=== PATIENT | male | born 2000 | race Two or more races ===

== ENCOUNTER 2022-04-02 20:03 | Emergency (ER) | payer MEDICAID ==
[~2022-04-02] VITALS: Ht 190.5 cm; Wt 103.0 kg
[2022-04-02 20:56] LABS: Basophils # (auto) 0.1 10 ^3/uL (0-0.2); Basophils % (auto) 0.8 % (0.0-2.0); Eosinophils # (auto) 0.1 10 ^3/uL (0-0.8); Eosinophils % (auto) 0.8 % (0.0-7.0); Hematocrit 43.8 % (41.0-53.0); Lymphocytes # (auto) 2.2 10 ^3/uL (0.4-5.4); Lymphocytes % (auto) 25.1 % (10.0-50.0); Mean Corpuscular Hemoglobin 31.1 pg (28.0-32.0); Mean Corpuscular Hgb Conc. 34.2 g/dL (32.0-36.0); Mean Corpuscular Volume 90.9 fL (80.0-100.0); Monocytes # (auto) 0.7 10 ^3/uL (0-1.3); Monocytes % (auto) 7.3 % (0.0-12.0); Neutrophils # (auto) 5.9 10 ^3/uL (1.6-8.6); Nucleated Red Blood Cells % 0.1 %; Red Blood Cells 4.82 10^6/uL (4.5-5.90); Red Cell Distribution Width 13.2 % (11.8-14.3); White Blood Cell 8.9 10^3/uL (4.4-10.8)
[2022-04-02 21:13] LABS: BUN/Creatinine Ratio 16.5; Calcium 9.1 mg/dL (8.5-10.1); INR 0.97 (0.9-1.15); Partial Thromboplastin Time 30.2 sec (24.6-33.4); Potassium 3.8 mmol/L (3.5-5.1)
[2022-04-02 21:16] LABS: Bilirubin, Total 0.4 mg/dL (0.2-1.0); Total Protein 7.8 g/dL (6.4-8.2)
[2022-04-03] MEDS ORDERED: AZIT250T9 PO (02:54)
[2022-04-03 02:55] VITALS: BP 121/74
== END 2022-04-03 02:58 | disposition home or self-care (01) ==
LOC: ER 20:05
DX: R07.89 Other chest pain (principal); J06.9 Acute upper respiratory infection, unspecified
CPT/HCPCS: 36415; 71045; 80053; 83880; 84484; 85025; 85610; 85730; 93005

== ENCOUNTER 2022-12-12 13:21 | Emergency (ER) | payer MEDICAID ==
[~2022-12-12] VITALS: Ht 190.5 cm; Wt 98.3 kg
[~2022-12-12 13:21] MED LIST: AZIT-43 PO
[2022-12-12 14:42] LABS: Basophils # (auto) 0 10 ^3/uL (0-0.2); Eosinophils # (auto) 0 10 ^3/uL (0-0.8); Eosinophils % (auto) 0.8 % (0.0-7.0); Hematocrit 45.3 % (41.0-53.0); Hemoglobin 15.8 g/dL (13.5-17.5); Lymphocytes # (auto) 1.5 10 ^3/uL (0.4-5.4); Lymphocytes % (auto) 32.9 % (10.0-50.0); Mean Corpuscular Hgb Conc. 34.8 g/dL (32.0-36.0); Mean Corpuscular Volume 88.8 fL (80.0-100.0); Monocytes # (auto) 0.4 10 ^3/uL (0-1.3); Monocytes % (auto) 9.5 % (0.0-12.0); Neutrophils # (auto) 2.5 10 ^3/uL (1.6-8.6); Neutrophils % (auto) 55.8 % (37.0-80.0); Nucleated Red Blood Cells % 0.2 %; White Blood Cell 4.4 10^3/uL (4.4-10.8)
[2022-12-12 14:47] LABS: Urine Bacteria FEW /hpf (None Seen); Urine Blood Negative /uL (Negative); Urine Clarity Clear (Clear); Urine Color Yellow (Yellow); Urine Protein, UAD Negative (Negative); Urine Specific Gravity 1.024 (1.001-1.035); Urine Urobilinogen Normal (Negative); Urine WBC <1 /hpf (0 - 3)
[2022-12-12 15:09] LABS: Alanine Aminotransferase 23 U/L (7-40); Albumin 4.9 g/dL (3.2-4.8); Alkaline Phosphatase 77 U/L (46-116); Anion Gap 8.8 (5-15); Aspartate Aminotransferase 8 U/L (13-40); BUN/Creatinine Ratio 11.8 (10.0-20.0); Bilirubin, Total 0.8 mg/dL (0.2-1.0); Blood Urea Nitrogen 10 mg/dL (9-23); Calcium 9.6 mg/dL (8.5-10.1); Carbon Dioxide 22.2 mmol/L (20-30); Chloride 106 mmol/L (98-107); Glucose 105 mg/dL (74-106); Potassium 4.1 mmol/L (3.5-5.1); Sodium 137 mmol/L (136-145); Total Protein 8.2 g/dL (5.7-8.2)
[2022-12-12 16:36] VITALS: BP 134/77; PULSE 67; RESP 17; TEMP 98.2; O2SAT 97
== END 2022-12-12 16:39 | disposition home or self-care (01) ==
LOC: ER 13:21
DX: R10.11 Right upper quadrant pain (principal); R11.2 Nausea with vomiting, unspecified; F12.10 Cannabis abuse, uncomplicated; E11.9 Type 2 diabetes mellitus without complications
CPT/HCPCS: 36415; 74176; 80053; 81001; 85025

== ENCOUNTER 2023-04-24 10:55 | Emergency (ER) | payer MEDICAID ==
[~2023-04-24] VITALS: Ht 188 cm; Wt 102.7 kg
[2023-04-24 11:54] LABS: Urine WBC None Seen /hpf (0 - 3)
[2023-04-24 12:04] LABS: Urine Bacteria NONE SEEN /hpf (None Seen); Urine Blood Negative /uL (Negative); Urine Clarity Clear (Clear); Urine Color Colorless (Yellow); Urine Protein, UAD Negative (Negative); Urine Specific Gravity 1.011 (1.001-1.035); Urine Urobilinogen Normal (Negative); Urine pH 6.5 (5.0-8.0)
[2023-04-24 12:06] LABS: Basophils # (auto) 0.1 10 ^3/uL (0-0.2); Basophils % (auto) 1.2 % (0.0-2.0); Eosinophils # (auto) 0 10 ^3/uL (0-0.8); Eosinophils % (auto) 0.9 % (0.0-7.0); Hematocrit 44.7 % (41.0-53.0); Hemoglobin 15.3 g/dL (13.5-17.5); Lymphocytes # (auto) 1.7 10 ^3/uL (0.4-5.4); Lymphocytes % (auto) 34.1 % (10.0-50.0); Mean Corpuscular Hemoglobin 31.2 pg (28.0-32.0); Mean Corpuscular Hgb Conc. 34.3 g/dL (32.0-36.0); Monocytes # (auto) 0.5 10 ^3/uL (0-1.3); Monocytes % (auto) 9.3 % (0.0-12.0); Neutrophils # (auto) 2.7 10 ^3/uL (1.6-8.6); Neutrophils % (auto) 54.5 % (37.0-80.0); Nucleated Red Blood Cells % 0.1 %; Red Blood Cells 4.91 10^6/uL (4.5-5.90)
[2023-04-24 12:36] LABS: Alanine Aminotransferase 19 U/L (7-40); Albumin 4.9 g/dL (3.2-4.8); Alkaline Phosphatase 82 U/L (46-116); Anion Gap 4 (5-15); Aspartate Aminotransferase 20 U/L (13-40); BUN/Creatinine Ratio 9.5 (10.0-20.0); Blood Urea Nitrogen 8 mg/dL (9-23); Calcium 9.6 mg/dL (8.5-10.1); Carbon Dioxide 26 mmol/L (20-30); Chloride 106 mmol/L (98-107); Glucose 93 mg/dL (74-106); Potassium 3.9 mmol/L (3.5-5.1); Sodium 136 mmol/L (136-145)
[2023-04-24 12:37] LABS: Bilirubin, Total 0.8 mg/dL (0.2-1.0); Total Protein 7.8 g/dL (5.7-8.2)
[2023-04-24] MEDS ORDERED: SODIUM CHLORIDE 0.9% 1,000 ML IV ONE (13:15)
[2023-04-24 14:24] VITALS: BP 121/82; PULSE 82; RESP 16; TEMP 98; O2SAT 99
[2023-04-24 16:40] LABS: Basophils # (auto) 0 10 ^3/uL (0-0.2); Eosinophils # (auto) 0 10 ^3/uL (0-0.8); Eosinophils % (auto) 0.3 % (0.0-7.0); Hematocrit 43.6 % (41.0-53.0); Lymphocytes # (auto) 1.7 10 ^3/uL (0.4-5.4); Lymphocytes % (auto) 32.9 % (10.0-50.0); Mean Corpuscular Hemoglobin 31.3 pg (28.0-32.0); Mean Corpuscular Hgb Conc. 34.4 g/dL (32.0-36.0); Monocytes # (auto) 0.5 10 ^3/uL (0-1.3); Monocytes % (auto) 8.9 % (0.0-12.0); Neutrophils # (auto) 2.9 10 ^3/uL (1.6-8.6); Neutrophils % (auto) 56.9 % (37.0-80.0); Nucleated Red Blood Cells % 0.1 %; Red Blood Cells 4.79 10^6/uL (4.5-5.90); Red Cell Distribution Width 12.9 % (11.8-14.3); White Blood Cell 5.2 10^3/uL (4.4-10.8)
== END 2023-04-24 17:28 | disposition home or self-care (01) ==
LOC: ER 10:55
DX: K92.1 Melena (principal); K59.00 Constipation, unspecified
CPT/HCPCS: 36415; 74176; 80053; 81001; 85025; 96360; 96361; 99284; J7030

== ENCOUNTER 2024-01-24 16:36 | Emergency (ER) | payer MEDICAID ==
[~2024-01-24] VITALS: Ht 190.5 cm; Wt 107.1 kg
[2024-01-24 17:26] VITALS: BP 152/86; PULSE 99; RESP 20; TEMP 98.4; O2SAT 94
[2024-01-24] MEDS ORDERED: NAPR-746 PO (18:05)
[2024-01-24] MEDS ORDERED: CEPH500C PO (18:05)
== END 2024-01-24 18:09 | disposition home or self-care (01) ==
LOC: ER 16:36
DX: S61.412A Laceration without foreign body of left hand, initial encounter (principal); S60.221A Contusion of right hand, initial encounter; F12.10 Cannabis abuse, uncomplicated; W22.01XA Walked into wall, initial encounter; Y93.01 Activity, walking, marching and hiking; Y92.89 Other specified places as the place of occurrence of the external cause; Y99.8 Other external cause status
CPT/HCPCS: 12002; 73130

== ENCOUNTER 2024-02-02 11:19 | Emergency (ER) | payer MEDICAID ==
[~2024-02-02] VITALS: Ht 190.5 cm; Wt 111.3 kg
[~2024-02-02 11:19] MED LIST changes: +CEPH500C PO; +NAPR-746 PO
[2024-02-02 12:00] VITALS: BP 143/74; PULSE 80; RESP 16; TEMP 99.1; O2SAT 97
== END 2024-02-02 12:17 | disposition home or self-care (01) ==
LOC: ER 11:22
DX: S61.412D Laceration without foreign body of left hand, subsequent encounter (principal); F15.90 Other stimulant use, unspecified, uncomplicated; Z48.02 Encounter for removal of sutures; Z79.899 Other long term (current) drug therapy; X58.XXXD Exposure to other specified factors, subsequent encounter

== ENCOUNTER 2024-09-08 02:01 | Emergency (ER) | payer MEDICAID ==
[~2024-09-08] VITALS: Ht 188 cm; Wt 109.1 kg
[2024-09-08 02:40] LABS: Basophils # (auto) 0.1 10 ^3/uL (0-0.2); Basophils % (auto) 0.9 % (0.0-2.0); Eosinophils # (auto) 0.1 10 ^3/uL (0-0.8); Eosinophils % (auto) 1.6 % (0.0-7.0); Hematocrit 43.1 % (41.0-53.0); Lymphocytes # (auto) 2.8 10 ^3/uL (0.4-5.4); Lymphocytes % (auto) 48.3 % (10.0-50.0); Mean Corpuscular Hemoglobin 31.3 pg (28.0-32.0); Mean Corpuscular Hgb Conc. 34.8 g/dL (32.0-36.0); Mean Corpuscular Volume 89.8 fL (80.0-100.0); Monocytes # (auto) 0.6 10 ^3/uL (0-1.3); Monocytes % (auto) 9.7 % (0.0-12.0); Neutrophils # (auto) 2.3 10 ^3/uL (1.6-8.6); Neutrophils % (auto) 39.5 % (37.0-80.0); Nucleated Red Blood Cells % 0.1 %; Platelet Count (auto) 232 10^3/uL (140-450); Red Cell Distribution Width 13.1 % (11.8-14.3); White Blood Cell 5.8 10^3/uL (4.4-10.8)
--- NOTE | 2024-09-08 02:41 | ED.PDOC ---
History of Present Illness HPI Comments 23 y/o obese M presents with 5x day history of nonradiating, sternal chest and epigastric abdominal pain, shortness of breath, and dizziness. Patient reports on persisting symptoms, with no prior history, following initial unprovoked and gradual onset. He describes pain as pressure-like in quality and having no modifiers. Patient endorses on having no significant history aside from marijuana use and reports no recent injuries, travel, sick contact, stressors, or strenuous activities. Patient denies having any nausea, vomiting, fever, chills, cough, congestion, or further associated symptoms. Chief Complaint: Chest Pain Time Seen by MD: 02:15 Primary Care Provider: ? Reviewed Notes: Nurses Notes, Medications, Allergies Allergies: Coded Allergies: NO KNOWN ALLERGIES (Unverified , 04/02/22) Home Meds Active Scripts Cephalexin Monohydrate (Cephalexin) 500 Mg Cap, 1 CAP PO QID, #28 CAP Prov:BONITA INMAN 01/24/24 Naproxen (Naproxen) 500 Mg Tab, 500 MG PO BID, #30 TAB Prov:BONITA INMAN 01/24/24 Azithromycin (Azithromycin) 250 Mg Tab, 250 MG PO DAILY, #6 TAB Prov:KIKI YUAN MD 04/03/22 Information Source: Patient Mode of Arrival: Ambulatory Severity: Moderate Timing: Days Duration: Since onset Prehospital treatment: None Past Medical History PAST MEDICAL HISTORY: Denies Surgical History: Denies all surgeries Family History Family History: Reviewed,noncontributory to illness Social History Smoker: Non-Smoker Alcohol: Denies ETOH Use Drugs: Marijuana Lives In: Home All Other Systems: Reviewed and Negative (Comprehensive systems review obtained and negative except for what is stated in the HPI.) Physical Exam General Appearance: No Apparent Distress, Obese HEENT: Normal ENT Inspection, Pharynx Normal, TMs Normal Neck: Full Range of Motion, Non-Tender, Normal, Normal Inspection Respiratory: Chest Non-Tender, Lungs Clear, No Accessory Muscle Use, No Respiratory Distress, Normal Breath Sounds Cardiovascular: No Edema, No JVD, No Murmur, No Gallop, Normal Peripheral Pulses, Regular Rate/Rhythm Breast Exam: Deferred Gastrointestinal: No Organomegaly, Non Tender, No Pulsatile Mass, Normal Bowel Sounds, Soft Genitalia: Deferred Pelvic: Deferred Rectal: Deferred Extremities: No calf tenderness, Normal capillary refill, Normal inspection, Normal range of motion, Non-tender, No pedal edema Musculoskeletal : Apperance: Normal Neurologic: Alert, wanigan clerk II-XII nml as Tested, No Motor Deficits, Normal Affect, Normal Mood, No Sensory Deficits Cerebellar Function: Normal Reflexes: Normal Skin: Dry, Normal Color, Warm Lymphatic: No Adenopathy Was a procedure done? Was a procedure done?: No EKG EKG : Pulse Rate (adult): 75 [place]: Normal Cardiac Rhythm: NSR Block: None Hypertrophy: None ST: Normal Differential Dx Considerations may include: [place], PE, ACS, URI, PNA, anxiety, angina, gastritis, gastroenteritis, GERD, PUD, among others X-Ray, Labs, Meds, VS Vital Signs Date Time Temp Pulse Resp B/P (MAP) Pulse Ox O2 Delivery O2 Flow Rate FiO2 09/08/24 02:41 75 09/08/24 02:06 75 09/08/24 02:05 98.2 83 18 127/71 (89) 97 98.2 Lab Test 09/08/24 03:01 09/08/24 02:17 Range/Units Troponin I High Sensitivity 5 6 </=54 ng/L White Blood Count 5.8 4.4-10.8 10^3/uL Red Blood Count 4.80 4.5-5.90 10^6/uL Hemoglobin 15.0 13.5-17.5 g/dL Hematocrit 43.1 41.0-53.0 % Mean Corpuscular Volume 89.8 80.0-100.0 fL Mean Corpuscular Hemoglobin 31.3 28.0-32.0 pg Mean Corpuscular Hemoglobin Concent 34.8 32.0-36.0 g/dL Red Cell Distribution Width 13.1 11.8-14.3 % Platelet Count 232 140-450 10^3/uL Mean Platelet Volume 8.8 6.9-10.8 fL Neutrophils (%) (Auto) 39.5 37.0-80.0 % Lymphocytes (%) (Auto) 48.3 10.0-50.0 % Monocytes (%) (Auto) 9.7 0.0-12.0 % Eosinophils (%) (Auto) 1.6 0.0-7.0 % Basophils (%) (Auto) 0.9 0.0-2.0 % Neutrophils # (Auto) 2.3 1.6-8.6 10 ^3/uL Lymphocytes # (Auto) 2.8 0.4-5.4 10 ^3/uL Monocytes # (Auto) 0.6 0-1.3 10 ^3/uL Eosinophils # (Auto) 0.1 0-0.8 10 ^3/uL Basophils # (Auto) 0.1 0-0.2 10 ^3/uL Nucleated Red Blood Cells 0.1 % Sodium Level 138 136-145 mmol/L Potassium Level 4.0 3.5-5.1 mmol/L Chloride Level 104 98-107 mmol/L Carbon Dioxide Level 24 20-31 mmol/L Anion Gap 10 5-15 Blood Urea Nitrogen 12 9-23 mg/dL Creatinine 0.90 0.700-1.30 mg/dL Glomerular Filtration Rate Calc 125 >90 mL/min BUN/Creatinine Ratio 13.3 10.0-20.0 Serum Glucose 107 H 74-106 mg/dL Calcium Level 9.2 8.7-10.4 mg/dL Time of 1ST Reevaluation: 02:45 Reevaluation 1ST: Unchanged Patient Education/Counseling: Diagnosis, Treatment, Need For Follow Up Family Education/Counseling: No Family Present Additional Information Previous visits reviewed: April 02, 2022 and February 02, 2024 encounters for chest pain and visit for suture removal s/p laceration of left hand The following tests were ordered, and results were reviewed by me: EKG, CXR, CBC, BMP, troponin Additional Information was gathered from interviewing the following independent historians: N/A I reviewed and agreed with the following test results read by other providers: CXR I discussed treatment and results with medical personnel and: patient Departure 1 Departure Time of Disposition: 03:43 (Patient presented with chest pain that was concerning for possible STEMI, ACS, PE, Pneumonia, Muscle Strain, COPD, Dissection. Data: 1. I ordered and reviewed the result of at least 3 labs including a CBC, BMP, and Troponin. 2. I independently interpreted the following tests: EKG which shows normal sinus rhythm and Chest X-ray which shows a benign chest.Risk:This patient presented with a high risk of morbidity due to further diagnostic testing or treatment and may suffer from an acute cardiac or respiratory disorder. After review of all the data patient is unlikely to have a pe , dissection, and is low risk for acs. Patient is stable at this time.Workup so far is benign and patient will be discharged with outpatient followup. ) Impression: Primary Impression: Pericarditis Qualified Codes: I30.0 - Acute nonspecific idiopathic pericarditis Additional Impression: Acute chest pain Disposition: HOME / SELF CARE / HOMELESS Condition: Stable Referrals: RICHIE SHEPARD MD Additional Instructions: You likely a pericarditis. This is inflammation of the area around the heart. Your heart is otherwise okay. You were prescribed medication please take as directed. You referred to Cardiology please make an appointment. For pain you can take the followinam: Ibuprofen 400mg with food Noon: Acetaminophen 1000mg 4pm: Ibuprofen 400mg with food 8pm: Acetaminophen 1000mg You should follow up with your regular doctor within one week to ensure you are doing better. If your symptoms worsen or you have any other concerns then please return to the ER. e-Prescriptions Colchicine (Colchicine) 0.6 Mg Cap 0.6 MG PO BID for 14 Days, #28 CAP Prov: JACK LUCIANO MD 09/08/24 Discharged With: Self Critical Care Note Critical Care Time?: No Stability Stability form required: No Heart Score Heart Score: Heart Score Response (Comments) Value History N/A 0 EKG Normal 0 Age <45 0 Risk Factors No known risk factors 0 Troponin Normal limit 0 Total 0 I personally scribed for JACK LUCIANO MD ([email or web address]) on 09/08/24 at 02:41. Electronically submitted by Giovani Ruby [email or web address]). JACK LUCIANO MD September 08, 2024 02:41
[2024-09-08 02:51] LABS: Chloride 104 mmol/L (98-107); Sodium 138 mmol/L (136-145)
[2024-09-08 02:52] LABS: Anion Gap 10 (5-15); Calcium 9.2 mg/dL (8.7-10.4); Carbon Dioxide 24 mmol/L (20-31)
[2024-09-08 02:57] LABS: BUN/Creatinine Ratio 13.3 (10.0-20.0); Blood Urea Nitrogen 12 mg/dL (9-23)
--- NOTE | 2024-09-08 03:00 | ECG ---
[facility] Test Date: 2024-09-08 Test Time: 02:59:30 Pat Name: CLINTON RODRIGES Department: ED Room: Gender: M Management Associate: : 2000 Requested By: JACK LUCIANO Order Number: [id number] Reading MD: Marcello Crooks Measurements Intervals [place] Rate: 65 P: 27 [place]: 143 QRS: 52 QRSD: 99 T: 22 QT: 387 QTc: 403 Interpretive Statements Sinus rhythm Atrial premature complexes ST elevation suggests acute pericarditis Electronically Signed On 09-12-2024 21:59:42 PDT by Marcello Crooks Please click the below link to view image of tracing.
[2024-09-08 03:08] LABS: Glucose 107 mg/dL (74-106)
--- NOTE | 2024-09-08 03:09 | DVH ---
Examination: CXRP CLINICAL INDICATION: Chest pain. COMPARISON: None. TECHNIQUE: Frontal radiograph of the chest was obtained. FINDINGS: Patient is in slight rotation. Lungs are clear and well expanded with no pulmonary infiltrate or pleural effusion. There is no pneumothorax. No evidence of cardiomegaly. No acute osseous abnormality is seen. IMPRESSION: No acute cardiopulmonary disease is seen. Electronically Signed 09/08/2024 03:07 Angel Ritter
[2024-09-08] MEDS ORDERED: COLC1CAP PO (03:45)
[2024-09-08] MEDS: COLCHICINE 0.6 MG CAP PO ONE (05:17)
[2024-09-08] MEDS: KETOROLAC TROMETH 30 MG/ML 1ML VIAL IM ONE (05:17)
[2024-09-08 05:21] VITALS: BP 143/84; PULSE 75; RESP 13; TEMP 98; O2SAT 99
--- NOTE | 2024-09-08 10:31 | ECG ---
[facility] Test Date: 2024-09-08 Test Time: 02:06:48 Pat Name: CLINTON RODRIGES Department: ER Room: Gender: M Tool Designer: SEAN : 2000 Requested By: JACK LUCIANO Order Number: [id number] Reading MD: Marcello Crooks Measurements Intervals [place] Rate: 75 P: 34 [place]: 139 QRS: 74 QRSD: 104 T: 51 QT: 378 QTc: 423 Interpretive Statements Sinus rhythm ST elevation suggests acute pericarditis Baseline wander in lead(s) V1 Electronically Signed On 09-12-2024 21:59:33 PDT by Marcello Crooks Please click the below link to view image of tracing.
== END 2024-09-08 05:56 | disposition home or self-care (01) ==
LOC: ER 02:03
DX: I31.9 Disease of pericardium, unspecified (principal); F12.90 Cannabis use, unspecified, uncomplicated; R07.2 Precordial pain; E66.9 Obesity, unspecified; Z79.899 Other long term (current) drug therapy
CPT/HCPCS: 36415; 71045; 80048; 84484; 85025; 93005; 96372; 99285; J1885